=== PATIENT | female | born 1990 | race Hispanic/Latino ===

== ENCOUNTER 2018-10-20 06:23 | Observation (INO) | payer BC ==
[2018-10-07 14:08] VITALS: BMI 19.8
[2018-10-20] MEDS ORDERED: Lactated Ringer's 1,000 ML IV ONE ×7 (07:00→11:26)
[2018-10-20] MEDS ORDERED: ceFAZolin IV 1 gm in Dextrose 1 GM/50 ML BAG IVPB ONE (07:13)
[2018-10-20] MEDS ORDERED: Propofol 10 mg/ml Inj (20 ML) ONE (07:27)
[2018-10-20] MEDS ORDERED: Midazolam 2 MG/2 ML VIAL ONE (07:28)
[2018-10-20] MEDS ORDERED: Rocuronium 10 mg/ml (5 ml) ONE (07:28)
[2018-10-20] MEDS ORDERED: Lidocaine 4% (Laryng-O-Jet) Kit MM ONE (07:28)
[2018-10-20] MEDS ORDERED: ePHEDrine 50 mg/ml Inj ONE (07:28)
[2018-10-20] MEDS ORDERED: Silver Nitrate Topical - Stick ONE (07:31)
[2018-10-20] MEDS ORDERED: Chlorhexidine Gluconate 2OZ GEL TP ONE (07:31)
[2018-10-20] MEDS: Bupivacaine 0.5% Inj(30mL) ONE ×2 (07:40→09:30)
[2018-10-20 07:44] LABS: BASO % 0.9 % (0.0-2.0); EOS # 0.1 K/uL (0.0-0.7); EOS % 3.2 % (0.0-4.0); HEMOGLOBIN 14.8 g/dL (12.0-16.0); LYMPH # 2.2 K/uL (1.0-4.3); LYMPH % 47.2 % (20.0-40.0); MEAN CELL VOLUME 88.4 fl (81.0-99.0); MEAN CORPUSCULAR HEMOGLOBIN 30.2 pg (27.0-31.0); MEAN CORPUSCULAR HGB CONC 34.2 g/dL (33.0-37.0); MEAN PLATELET VOLUME 9.3 fl (7.2-11.7); MONO # 0.4 K/uL (0.0-0.8); MONO % 9.7 % (0.0-10.0); NEUT # 1.8 K/uL (1.8-7.0); NRBC % 0.3 % (0.0-0.0); RBC 4.88 Mil/uL (3.80-5.20); RED CELL DISTRIBUTION WIDTH 12.6 % (11.5-14.5); WHITE BLOOD COUNT 4.5 K/uL (4.8-10.8)
[2018-10-20] MEDS ORDERED: Dexamethasone 4 mg/1 ml ONE (09:30)
[2018-10-20] MEDS ORDERED: Neostigmine 1:1000 (1 mg/ml) Inj ONE (11:29)
[2018-10-20] MEDS ORDERED: HYDROmorphone 0.5 mg/0.5 ml ISec ONE ×2 (12:03→12:43)
[2018-10-20] MEDS ORDERED: Oxycodone/Acetaminophen 5/325 mg Tab PO PRN (12:07)
[2018-10-20] MEDS: HYDROmorphone 0.5 mg/0.5 ml ISec IVP PRN ×2 (12:30→12:40)
[2018-10-20] MEDS: Lactated Ringer's 1,000 ML IV SCH (16:53)
[2018-10-20 22:21] VITALS: RESP 20
[2018-10-21] MEDS: Lactated Ringer's 1,000 ML IV SCH (01:17)
--- NOTE | 2018-10-21 07:20 | OP ---
PROCEDURE DATE: 10/20/2018 SURGEON: Tom Rios MD BOAT JOINER: Drake ORTIZ, Harley Delacruz. Manny ROACH ANESTHESIOLOGIST: Deborah Nagel MD TYPE OF ANESTHESIA: General endotracheal. PREOPERATIVE DIAGNOSES: 1. Incapacitating pelvic pain. 2. Incapacitating abdominal pain. 3. Abnormal uterine bleeding. 4. History of pelvic endometriosis. 5. History of previously failed medical and surgical therapy. 6. Gastrointestinal and genitourinary symptoms. 7. Rule out interstitial cystitis. 8. History of severe endometriosis and pelvic adhesions 9: left ovarian endometrioma POSTOPERATIVE DIAGNOSES: 1. Incapacitating pelvic pain. 2. Incapacitating abdominal pain. 3. Abnormal uterine bleeding. 4. History of pelvic endometriosis. 5. History of previously failed medical and surgical therapy. 6. History of severe endometriosis and pelvic adhesions. 7. Gastrointestinal and genitourinary symptoms. 8. left ovarian endometrioma 9. Mild ureteral distention. anterior bladder endometriosis PROCEDURES PERFORMED: 1. Exam under anesthesia. 2. Video assisted hysteroscopy. 3. Cystoscopy. 4. Bilateral ureteral catheterization and injection of IC-Green dye. 5. Robotic da Latia operative laparoscopy. 6. Treatment of endometriosis. 7. Excision of endometriosis. 8. Bilateral ureterolysis. 9. Bilateral ovariolysis. 10: left ovarian cystectomy 11: excision of anterior bladder endometriosis 12) right temporary ovariopexy Drake will dictate separatey appendectomy and perirectal endometriosis excision COMPLICATIONS: None. SAMPLES SENT: 1. Left Uterosacral l endometriosis. 2. Left periureteral endometriosis. 3. Right periureteral endometriosis. 4. Right uterosacral endometriosis. 5. Left and right ovarian fossa endometriosis. 6. Iliac endometriosis. 7. Posterior cervical endometriosis. 8. Rectal endometriosis, anterior. 9) Cul de sac endometriosis INDICATION FOR THE PROCEDURE AND CONSENT: The patient had a long history of pelvic pain, dysmenorrhea, dyspareunia, abdominal pain, and bladder pain. The patient had been thoroughly evaluated and counseled regarding the pros and cons of the procedure, the reasonable alternatives, and possible complications. She understood and accepted the risks involved. Literature was provided to the patient. The patient was understanding and given her history and per surgical exam, she was at high risk in an average patient. She accepted all the risks involved, and all the questions had been answered to her satisfaction. FINDINGS OF SURGERY: Genitalia: Normal external genitalia, cervix without lesion and polyps. Hysteroscopy: Hysteroscopy shows a clear uterine cavity with no polyps or masses noticed. Cystoscopy: The cystoscopy was performed to rule out endometriosis and also any interstitial cystitis and also injury. The bladder was normal with no evidence of stone, trigonitis, or cystitis. A positive jet flow was identified in both ureters. Laparoscopy: The upper abdomen appeared to be normal. Gallbladder was normal. Liver edges appeared to be normal. Ascending colon and transverse were normal. There was evidence of adhesions, fibrosis, and endometriosis of the rectovaginal and pelvic sidewalls. The appendix appeared to be abnormal with possible endometirotic involvement . there was endometriosis on the anterior bladder serosa. there was a large left ovarian endometrioma .Both fallopian tubes appeared to be patent, although there was evidence of massive inflammation on the serosal surface of the left fallopian tube which was pulled and wrapped on the left round ligamend and had a large 2 cm endometrioma on it. There was also evidence of mild hydroureters. DESCRIPTION OF THE PROCEDURE: Initiation of the case: After adequate anesthesia was obtained, the patient was placed in the dorsal lithotomy position, and with extreme care, placement of the patient with hyperextension and hyperflexing of the hips. At this point, the patient was prepped and draped. The surgeon was gowned and gloved. A timeout was taken according to the hospital procedure and the procedure was started. At this point, we performed cystoscopy, bilateral ureteral catheterization. A cystoscope was inserted into the bladder under direct visualization and the bladder was visualized. The bladder was free of lesions and tumors. There was no evidence of interstitial cystitis, and there was only mild amount of trigonitis. At this point, both ureters were identified and appeared to be in their normal anatomical position. At this point, utilizing an open 5-Kinyarwanda open-ended catheter, the left ureter was catheterized all the way to the distal ureter, and 5 mL of IC-Green was injected into this ureter. Similarly, the contralateral ureter was catheterized all the way to the distal ureter, and 5 mL of IC-Green was injected into the distal ureter. At this point, the stents were removed, and the cystoscope was removed, and the 16-Kinyarwanda Thomas was inserted into the bladder. At this point, we proceeded with a hysteroscopy. A speculum was placed into vagina, and the anterior lip of the cervix was grasped. The cervix was dilated, and a hysteroscope was inserted into the cavity. The cavity appeared to be of normal size with no evidence of polyps, cysts, adenomyosis, or fibroids. At this point, we proceeded with placement of a trocar and docking of the da Latia Xi robot. The surgeon was re-gowned and gloved, and open laparoscopy was performed by making incision in the umbilicus and the fascia was incised. The peritoneum was entered in a blunt fashion, and the cannula was inserted under direct visualization. The abdomen was insufflated, and under direct visualization, three additional ports were inserted in the left upper quadrant, left mid quadrant, and right upper quadrant. At this point, the da Latia Xi robot was brought into the field and docked, and the instruments were inserted under direct visualization. All this with extreme care not to injure the bowel or another area. As per dictation, the upper abdomen appeared to be normal with no evidence of any lesions. At this point, we proceeded with excision of anterior bladder endometirosis THE first step involved cutting a large and thick band of adhesions between the ovary wrapping around the fubdus of the uterus and then onthe anterior bladder. there was a thick and deeply infiltrating lesion on the bladder that was excised withourt entering into the mucosa. At this point, we proceeded with a left ureterolysis. The ureter appeared to be dilated and was clearly identified utilizing IC-Green fluorescent technology. Anesthesia was made in the peritoneum at the top of the pelvic brim, and the incision was then carried down all the way opening the peritoneum all the way down from the pelvic brim, all the way down to the ovarian fossa, extending the incision below the ovary. It was a progressive dissection where the ureter was progressively lateralized and peritoneum was medialized, thus freeing the ureter all the way down to the cross of the uterine vessels. After this was done, the ureter was freed and lateralized, and a larger peritoneum which had been opened, was excised, and sent to pathology. At this point, with the aid of very slow process, I was able to elevate the ovary and proceed with ovariolysis. At this point, we proceeded with a left ovariolysis. The left ovary was adherent to the posterior aspect of the uterus. It was gently dissected in a step by step way. It was peeled off, the ovarian fossa, and an area of extensive fibrosis and endometriosis was exposed. At this point, we proceeded with excision of tubal endometriosis excision of iliac endo the left tube was very tortuous and stuck in a mass incorporating the round ligament ,. all wrapped around a 2 cm endometrioma on the tube itself. A very meticulous dissection was performed lysin adhesions , excising endometriosis while preserving the tube and blood supply to the ovary. At this point, we proceeded with a right ureterolysis. The ureter was identified again utilizing fluorescent technology on the right hand side and retroperitoneal space was entered, and a full dissection was performed,entering the retroperitoneal space and dissecting the ureter, removing the ureter laterally and the peritoneum medially. A full dissection was performed all the way down to the ovarian fossa and the crossing of the uterine arteries. An area of peritoneum containing endometriosis was dissected and sent to Pathology. At this point, we proceeded with a right ovariolysis and ovario pexy The right ovary was adherent to the peritoneum. It was gently elevated progressively, and dissected off from the peritoneal area. All this done with extreme care to preserve vascularization to the ovary. the righ ovary was then pexed using vycryl suture At this point, we proceeded with treatment of endometriosis and excision of endometriosis. On the left hand side, fibrosis, especially in the left ovarian fossa was excised. In a very progressive step by step fashion, we dissected off fibrosis containing endometriosis and freed up the whole area. The ureters which had been lateralized. Areas of fibrosis and endometriosis were also identified in the posterior cul-de-sac and in the rectovaginal space which was also affected with endometriosis and fibrosis. At this point, we proceeded with the excision of perirectal endometriosis. The rectovaginal area had significant fibrosis and additional endometriosis was dissected from the posterior aspect of the uterus, and the rectovaginal space was entered at the level of the peritoneal reflection. All this done making sure that no damage to the rectum was performed. At this point, endometriosis was also excised from the right uterosacral area which also was affected by fibrosis and endometriosis. At this point, we proceeded with a right ovarian cystectomy the cyst wall was removed from the left ovary and sent to pathology, the ovary was then repaired utilizing 4.0 vycryl suture At this point, it was checked for hemostasis and appeared to be excellent. Both fallopian tubes were in good condition and patent. At this point the console was handed over to Dr. Juan from General surgery who proceeded with appendectomy and excision of rectal endo procedure. He will dictate that separately. After he was done we checked for hemostasis and organ integrity and all was normal. At this point, the da Latia Xi robot was removed. The abdomen was desufflated, and the incisions were closed in layers with 0 PDS for the fascia and 4-0 Monocryl for the skin. At the end of the procedure, all tips and instrument counts were correct. The patient tolerated the procedure well and was taken to the recovery room in excellent condition. Blanca ORTIZ, Tom DYER
--- NOTE | 2018-10-21 07:58 | CP.SDSHP ---
Same Day Surgery H & P - Allergies Allergies: Allergies No Known Allergies Allergy (Verified 10/20/18 08:03) - Physical Exam Vital Signs: Vital Signs 10/21/18 10/21/18 01:00 05:00 Temperature 100.3 F H 99.7 F H Pulse Rate 80 84 Respiratory 20 20 Rate Blood Pressure 108/59 L 94/60 L O2 Sat by Pulse 100 100 Oximetry Short Stay Discharge - Short Stay Discharge Admitting Diagnosis/Reason for Visit: N80.0 POST OPERATIVE ENDOMETRESOSIS AND APPENDECTO Disposition: HOME/ ROUTINE Follow-up: 2 weeks followup in office Progress Note/Discharge Note with Instructions: Patient seen and examined this AM at bedside no acute events overnight. She reports pain which is helped by percocet however she complains of dyspepsia following percocet. She denies any chest pain or SOB. discussed importance of ambulation and getting out of bed. Discussed realistic expectations for pain in the first few post operative days. All questions were answered. PE: Abdomen soft non tender non distended, with dressings clean dry and intact. 28F POD1 s/p robotic endometresosis removal and appendectomy and doing well Discharge home on percocet for pain no heavy lifting 4 weeks followup in office in about 2 weeks Jayme Go PGY3
[2018-10-21 09:46] VITALS: BP 105/64; PULSE 77; TEMP 99; O2SAT 99
--- NOTE | 2018-10-27 12:04 | PCM.OP ---
Operative Report - Operative Report Date of Surgery/Procedure: 10/27/18 Time of Surgery/Procedure: 10:00 Surgeon: Dr. Harley Juan Chief Informatics Officer: Dr. Tom Rios Anesthesia/Sedation: General/Dr. Nagel Pre-Operative Diagnosis: Abdominal pain and endometriosis Post-Operative Diagnosis: Same Indication for Surgery: As above Operative Findings: Intestinal involvement with endometriosis Procedure/Operation Description: 1 excision of multiple perirectal endometriosis 2 appendectomy Brief history: This is a 28-year-old man who is already brought to the operating room by Dr. Tom Rios and intraoperative surgical assistance was requested. Description of procedure: The patient had already begun the robotic procedure with Dr. Rios (separate dictation). Over the robotic console the first of multiple lesions was incised circumferentially with electrocautery. Using sharp and blunt dissection the lesion was lifted and excised en bloc after being separately marked and sent to pathology as separate specimen. The second lesion was excised in a similar fashion and sent to pathology separately. Our attention then turned to the appendix which was retracted anteriorly. The mesentery was desiccated with monopolar device to the level of the base. The appendix was then ligated with multiple 3-0 vicryl loops. The appendix was marked and sent to pathology separately. Hemostasis was deemed adequate. The operation was then turned over to Dr. Rios (separate dictation). Estimated Blood Loss: 5 cc Complications: none Discharge & Condition: stable
== END 2018-10-21 14:40 | disposition home or self-care (01) ==
LOC: H.OPSURG 06:23 → H.PEDS 12:06
PROVIDERS: ADMIT Obstetrics & Gynecology Reproductive Endocrinology; ATTEND Obstetrics & Gynecology Reproductive Endocrinology
DX: N80.1 Endometriosis of ovary (principal); N83.02 Follicular cyst of left ovary; N80.0 Endometriosis of uterus; N80.3 Endometriosis of pelvic peritoneum; N80.2 Endometriosis of fallopian tube; N80.5 Endometriosis of intestine; N73.6 Female pelvic peritoneal adhesions (postinfective); N13.4 Hydroureter; N93.8 Other specified abnormal uterine and vaginal bleeding
CPT/HCPCS: 36415; 44970; 52005; 58662; 85025; 86850; 86900; 88304; 88305; 96374; C1729; G0378; J0690; J1100; J1170; J1885; J2001; J2250; J2405; J2704; J2710; J3010; J7030; J7120; S2900